=== PATIENT | male | born 1985 | race Caucasian/White ===

== ENCOUNTER 2023-04-04 11:10 | Emergency (ER) | payer SELFPAY ==
[2023-04-04 11:38] LABS: BASOPHILS % (AUTO) 0.4 %; EOSINOPHILS # (AUTO) 0.1 10^3/uL (0.0-0.7); EOSINOPHILS % (AUTO) 1.4 %; HCT - HEMATOCRIT 45.9 % (42.0-52.0); HGB - HEMOGLOBIN 15.1 g/dL (14.0-18.0); LYMPHOCYTES # (AUTO) 1.4 10^3/uL (1.5-3.5); MEAN CORPUSCULAR HGB CONC 32.9 g/dL (32.0-36.0); MEAN CORPUSCULAR VOLUME 91.1 fL (80.0-94.0); MEAN PLATELET VOLUME 8.7 fL (7.4-11.4); MONOCYTES # (AUTO) 0.8 10^3/uL (0.0-1.0); MONOCYTES % (AUTO) 10.5 %; NEUTROPHILS # (AUTO) 5.2 10^3/uL (1.5-6.6); NEUTROPHILS % (AUTO) 68.6 %; PLT - PLATELET COUNT 242 10^3/uL (130-450); RED BLOOD COUNT 5.04 10^6/uL (4.70-6.10); RED CELL DISTRIBUTION WIDTH 11.7 % (12.0-15.0); WHITE BLOOD COUNT 7.6 x10^3/uL (4.8-10.8)
[2023-04-04 11:53] LABS: ALBUMIN 4.4 g/dL (3.2-5.5); ALBUMIN/GLOBULIN RATIO 1.5 (1.0-2.2); BILIRUBIN,TOTAL 0.4 mg/dL (0.2-1.0); CALCIUM 10.2 mg/dL (8.5-10.3); POTASSIUM 3.8 mmol/L (3.5-4.5); TOTAL PROTEIN 7.3 g/dL (6.4-8.9)
[2023-04-04 12:04] LABS: BILIRUBIN,URINE NEGATIVE (NEGATIVE); GLUCOSE, URINE (UA) NEGATIVE (NEGATIVE); KETONES,URINE (UA) NEGATIVE (NEGATIVE); LEUKOCYTE ESTERASE, URINE NEGATIVE (NEGATIVE); NITRITE,URINE NEGATIVE (NEGATIVE); OCCULT BLOOD,URINE NEGATIVE (NEGATIVE); PROTEIN,URINE NEGATIVE (NEGATIVE); UROBILINOGEN,URINE 0.2 (NORMAL) E.U./dL (NORMAL)
[2023-04-04 12:05] LABS: CLARITY,URINE CLEAR (CLEAR)
[2023-04-04 12:23] VITALS: O2SAT 100
--- NOTE | 2023-04-04 12:35 | ED Physician Documentation ---
History of Present Illness - Stated complaint Stated Complaint: STOMACH PX - Chief complaint Chief Complaint: Abd Pain - History obtained from History obtained from: Patient - History of Present Illness Pain level max: 5 Pain level now: 5 - Additonal information Additional information: Patient is a 37-year-old male who presents to the emergency department with epigastric and right lower quadrant abdominal pain times 3 days. Nothing really seems to make it better or worse, somewhat worse with palpation and movement, states still eating well but has some mild nausea. Has not had any significant diarrhea or constipation. He states he had a small amount of diarrhea. Is visiting from [place]. States drinks occasional alcohol. Does use nicotine cartridges. The pain has been constant, pressure/burning. Review of Systems Constitutional: denies: Fever, Chills Respiratory: denies: Cough GI: denies: Hematemesis, Bloody / black stool Skin: denies: Rash Musculoskeletal: denies: Neck pain, Back pain Neurologic: denies: Headache PD PAST MEDICAL HISTORY - Past Medical History Past Medical History: Yes Cardiovascular: High cholesterol - Past Surgical History Past Surgical History: No - Present Medications Home Medications: Ambulatory Orders Medication Instructions Recorded Confirmed Dicyclomine [Bentyl] 10 mg PO QID PRN #30 cap 04/04/23 Ondansetron Odt [Zofran] 4 mg TL Q6H PRN #10 tablet 04/04/23 - Allergies Allergies/Adverse Reactions: Allergies Allergy/AdvReac Type Severity Reaction Status Date / Time No Known Drug Allergies Allergy Verified 04/04/23 11:19 - Social History Does the pt smoke?: No Smoking Status: Never smoker Does the pt drink ETOH?: Yes Does the pt have substance abuse?: No PD ED PE NORMAL - Vitals Vital signs reviewed: Yes - General General: Alert and oriented X 3, No acute distress - HEENT HEENT: Moist mucous membranes - Neck Neck: Supple, no meningeal sign - Cardiac Cardiac: RRR, Strong equal pulses - Respiratory Respiratory: No respiratory distress, Clear bilaterally - Abdomen Abdomen: Soft, Non distended, Other (Mild tenderness to palpation epigastric, no peritoneal signs. Also mild tenderness to palpation right lower quadrant without peritoneal signs.) - Back Back: No spinal TTP - Derm Derm: Warm and dry, No rash - Neuro Neuro: Alert and oriented X 3 - Psych Psych: Normal mood, Normal affect Results - Vitals Vitals: Vital Signs - 24 hr 09/03/23 09/03/23 09/03/23 11:16 12:15 14:20 Temperature 36.7 C Heart Rate 97 87 68 Respiratory 20 18 18 Rate Blood Pressure 124/90 H 124/83 H 125/82 H O2 Saturation 99 100 100 04/04/23 14:59 Temperature Heart Rate 75 Respiratory 18 Rate Blood Pressure 124/86 H O2 Saturation 100 Oxygen O2 Source Room air - Labs Labs: Laboratory Tests 04/04/23 04/04/23 04/04/23 11:31 11:31 11:50 WBC 7.6 RBC 5.04 Hgb 15.1 Hct 45.9 MCV 91.1 MCH 30.0 MCHC 32.9 RDW 11.7 L Plt Count 242 MPV 8.7 Neut # (Auto) 5.2 Lymph # (Auto) 1.4 L Williams # (Auto) 0.8 Eos # (Auto) 0.1 Baso # (Auto) 0.0 Absolute Nucleated RBC 0.00 Nucleated RBC % 0.0 Sodium 141 Potassium 3.8 Chloride 102 Carbon Dioxide 34 H Anion Gap 5.0 L BUN 8 Creatinine 1.0 Estimated GFR (MDRD) 85 L Glucose 115 H Calcium 10.2 Total Bilirubin 0.4 AST 13 ALT 11 Alkaline Phosphatase 65 Total Protein 7.3 Albumin 4.4 Globulin 2.9 Albumin/Globulin Ratio 1.5 Lipase 24 Urine Color YELLOW Urine Clarity CLEAR Urine pH 7.0 Ur Specific [place] 1.015 Urine Protein NEGATIVE Urine Glucose (UA) NEGATIVE Urine Ketones NEGATIVE Urine Occult Blood NEGATIVE Urine Nitrite NEGATIVE Urine Bilirubin NEGATIVE Urine Urobilinogen 0.2 (NORMAL) Ur Leukocyte Esterase NEGATIVE Ur Microscopic Review NOT INDICATED Urine Culture Comments NOT INDICATED - Rads (name of study) CT abdomen pelvis Relevant Findings:: Final report received, See rad report PD Medical Decision Making - ED course Complexity details: reviewed results, re-evaluated patient, considered differential, d/w patient ED course: 37-year-old male with abdominal pain, CT scan appears consistent with an infectious versus inflammatory colitis, likely viral. Normal white blood cell count. No fevers. No other acute lab abnormalities. Given Levsin for cramping, we will place on Bentyl for home, prescribe Zofran. Given IV fluids here. We will have him follow-up with his PCP for further care. Patient is well-appearing, nontoxic. Patient counseled regarding signs and symptoms for which I believe and urgent re-evaluation would be necessary. Patient with good understanding of and agreement to plan and is comfortable going home at this time This document was made in part using voice recognition software. While efforts are made to proofread this document, sound alike and grammatical errors may occur. Departure - Departure Disposition: Home, Self Care Clinical Impression: Colitis Condition: Good Instructions: ED Abdominal Pain Unkn Cause Male Follow-Up: your,doctor as needed [Other] Prescriptions: Dicyclomine [Bentyl] 10 mg PO QID PRN #30 cap PRN Reason: Abdominal Pain Ondansetron Odt [Zofran] 4 mg TL Q6H PRN #10 tablet PRN Reason: Nausea / Vomiting Comments: Your prescriptions were sent to [facility] in [place]. Your CT scan shows a possible colitis, this is likely the cause of your symptoms. Your laboratory testing does not show any acute abnormalities. Your white blood cell count is normal. This should improve over the next few days. Please return if you worsen. PROCEDURE: ABDOMEN/PELVIS W INDICATIONS: epigastric/RLQ pain CONTRAST: 100ml omni 300 TECHNIQUE: After the administration of IV contrast, 5 mm thick sections acquired from the diaphragms to the symphysis. 5 mm thick coronal and sagittal reformats were acquired. For radiation dose reduction, the following was used: automated exposure control, adjustment of mA and/or kV according to patient size. COMPARISON: None. FINDINGS: Image quality: Diagnostic. Lung bases and heart: Unremarkable. Liver: No solid mass. Gallbladder and biliary tree: Within normal limits. Spleen: No splenomegaly. Pancreas: No pancreatic ductal dilation. Adrenals: No adrenal nodule. Kidneys and ureters: No hydronephrosis. No renal cystic lesion which requires follow up. No solid mass. Bowel and peritoneum: In this patient with this given history, scrutiny is given to the appendix. The appendix is well-seen, as on series 2 images 15 through 63. No focal right lower quadrant inflammatory changes are seen. No dilated loops of small bowel are seen. Areas of irregularity can be seen within the colon, including at the level of the rectum. Lymph nodes: No central or retroperitoneal adenopathy. Vessels: No infrarenal aortic aneurysm. PELVIS Reproductive organs: Unremarkable. Bladder: No abnormal wall thickening, accounting for underdistension. Pelvic lymph nodes: No pelvic adenopathy by size criteria. Bones: No aggressive osseous abnormality. Other: No significant ventral or inguinal hernia. IMPRESSION: Normal appendix. Areas of irregularity can be seen involving the colon. Please consider infectious and inflammatory causes of colitis. Forms: PCP List Discharge Date/Time: 04/04/23 15:00
[2023-04-04] MEDS ORDERED: iohexoL-300 100 ML VIAL IVP ONE (13:50)
--- NOTE | 2023-04-04 14:02 | CT Report ---
PROCEDURE: ABDOMEN/PELVIS W INDICATIONS: epigastric/RLQ pain CONTRAST: 100ml omni 300 TECHNIQUE: After the administration of IV contrast, 5 mm thick sections acquired from the diaphragms to the symp hysis. 5 mm thick coronal and sagittal reformats were acquired. For radiation dose reduction, the f ollowing was used: automated exposure control, adjustment of mA and/or kV according to patient size. COMPARISON: None. FINDINGS: Image quality: Diagnostic. Lung bases and heart: Unremarkable. Liver: No solid mass. Gallbladder and biliary tree: Within normal limits. Spleen: No splenomegaly. Pancreas: No pancreatic ductal dilation. Adrenals: No adrenal nodule. Kidneys and ureters: No hydronephrosis. No renal cystic lesion which requires follow up. No solid mas s. Bowel and peritoneum: In this patient with this given history, scrutiny is given to the appendix. The appendix is well-seen, as on series 2 images 15 through 63. No focal right lower quadrant inflammato ry changes are seen. No dilated loops of small bowel are seen. Areas of irregularity can be seen within the colon, including at the level of the rectum. Lymph nodes: No central or retroperitoneal adenopathy. Vessels: No infrarenal aortic aneurysm. PELVIS Reproductive organs: Unremarkable. Bladder: No abnormal wall thickening, accounting for underdistension. Pelvic lymph nodes: No pelvic adenopathy by size criteria. Bones: No aggressive osseous abnormality. Other: No significant ventral or inguinal hernia. IMPRESSION: Normal appendix. Areas of irregularity can be seen involving the colon. Please consider infectious and inflammatory ca uses of colitis. Reviewed by: Anthony Carroll MD on 04/04/2023 1:00 PM DAVID Approved by: Anthony Carroll MD on 04/04/2023 1:00 PM DAVID Station ID: [id number]
[2023-04-04] MEDS ORDERED: SODIUM CHLORIDE 0.9% 1,000 ML IV STA (14:07)
[2023-04-04] MEDS ORDERED: HYOSCYAMINE SL 0.125 MG TABLET SL STA (14:45)
[2023-04-04 15:01] VITALS: BP 124/86
== END 2023-04-04 15:00 | disposition home or self-care (01) ==
LOC: ED 11:10
DX: K52.9 Noninfective gastroenteritis and colitis, unspecified (principal); E78.00 Pure hypercholesterolemia, unspecified
CPT/HCPCS: 36415; 74177; 80053; 81003; 83690; 85025; 99283; 99284; A9270; Q9967; 81001; 87086